=== PATIENT | female | born 1940 | race Caucasian/White ===

== ENCOUNTER 2022-02-21 08:16 | Emergency (ER) | payer MEDICARE, BC ==
[~2022-02-21] VITALS: Ht 167.6 cm; Wt 90.9 kg
[2022-02-21 08:24] VITALS: BP 129/65
[2022-02-21 09:08] LABS: CLARITY,URINE CLOUDY (Clear); COLOR,URINE STRAW (Yellow); GLUCOSE, URINE NEGATIVE (Neg); KETONES,URINE NEGATIVE (Neg); LEUKOCYTE ESTERASE ,URINE TRACE (Neg); NITRITES, URINE NEGATIVE (Neg); OCCULT BLOOD,URINE NEGATIVE (Neg); PROTEIN,URINE NEGATIVE (Neg); UROBILINOGEN,URINE 0.2 E.U/dL (0.2-1.0)
[2022-02-21 09:19] LABS: BASOPHILS # (AUTO) 0.1 X10'3 (0-0.2); BASOPHILS % (AUTO) 0.4 % (0-1); EOSINOPHILS # (AUTO) 0.3 X10'3 (0-0.9); EOSINOPHILS % (AUTO) 2.4 % (0-6); HEMATOCRIT 41.8 % (35.0-45.0); HEMOGLOBIN 13.8 g/dl (12.0-16.0); LYMPHOCYTES # (AUTO) 2.3 X10'3 (1.1-4.8); LYMPHOCYTES % (AUTO) 17.4 % (21-51); MEAN CORPUSCULAR HEMOGLOBIN 30.5 PG (27.0-31.0); MEAN CORPUSCULAR HGB CONC 33.1 g/dL (33.0-36.5); MEAN CORPUSCULAR VOLUME 92.3 FL (78-98); MEAN PLATELET VOLUME 8.5 FL (7.4-10.4); MONOCYTES % (AUTO) 7.4 % (2-12); NEUTROPHILS # (AUTO) 9.7 X10'3 (1.8-7.7); NEUTROPHILS % (AUTO) 72.4 % (42-75); PLATELET COUNT 182 X10'3 (140-440); RED BLOOD COUNT 4.53 X10'6 (4.20-5.60); WHITE BLOOD COUNT 13.4 X10'3 (4.5-11.0)
[2022-02-21 09:34] LABS: ALANINE AMINOTRANSFERASE 33 U/L (12-78); ALBUMIN 3.8 G/DL (3.4-5.0); ALBUMIN/GLOBULIN RATIO 0.9 (1.1-1.5); ALKALINE PHOSPHATASE 162 IU/L (46-116); ASPARTATE AMINO TRANSFERASE 30 U/L (10-37); BILIRUBIN,TOTAL 0.4 MG/DL (0.1-1.0); BLOOD UREA NITROGEN 28 MG/DL (7-18); BUN/CREATININE RATIO 21.1 (6.6-38.0); CALCIUM 10.6 MG/DL (8.5-10.1); CREATININE 1.33 MG/DL (0.40-0.90); GLUCOSE 221 MG/DL (70-104); TOTAL CARBON DIOXIDE 24.4 MMOL/L (24-32); TOTAL PROTEIN 8.1 G/DL (6.4-8.2); eGFR 38 ML/MIN
[2022-02-21 09:38] LABS: UA COLLECTION TYPE CLN CATCH MIDSTREAM
[2022-02-21 09:39] LABS: SQUAMOUS EPITHELIAL CELL,UR MODERATE /LPF (FEW)
[2022-02-21 09:41] LABS: BACTERIA,URINE 1+ /HPF (Neg); RBC,URINE 0-2 /HPF (0-2); WBC,URINE 0-4 /HPF (0-4)
[2022-02-21 09:47] LABS: ANION GAP 10 (8-16); CHLORIDE 100 MMOL/L (99-107); POTASSIUM 3.8 MMOL/L (3.5-5.1); SODIUM 134 MMOL/L (135-145)
[2022-02-21] MEDS ORDERED: normal saline 1000ML IV soln IVB ONE (09:55)
[2022-02-21] MEDS ORDERED: metroNIDAZOLE 500mg tablet PO ONE (11:40)
[2022-02-21] MEDS ORDERED: CEFD300C3 PO (11:40)
[2022-02-21] MEDS ORDERED: METR-159 PO (11:40)
== END 2022-02-21 12:06 | disposition home or self-care (01) ==
LOC: ER 08:16
DX: K57.92 Diverticulitis of intestine, part unspecified, without perforation or abscess without bleeding (principal); I10 Essential (primary) hypertension; E03.9 Hypothyroidism, unspecified; Z88.1 Allergy status to other antibiotic agents; Z90.49 Acquired absence of other specified parts of digestive tract; Z98.890 Other specified postprocedural states; R41.0 Disorientation, unspecified
CPT/HCPCS: 36415; 70450; 74176; 80053; 81001; 84145; 85025; 87088; 99284; J7030

== ENCOUNTER 2022-06-23 07:44 | Inpatient (IN) | payer MEDICARE, BC ==
[~2022-06-23] VITALS: Ht 165.1 cm; Wt 93.2 kg
[2022-06-23] MEDS ORDERED: CefTRIAXone 2gm/D5W 50ml BAG 50 ML IV ONE (08:25)
[2022-06-23] MEDS ORDERED: normal saline 1000ML IV soln IV ONE (08:25)
[2022-06-23 08:48] LABS: BASOPHILS # (AUTO) 0.1 X10'3 (0-0.2); BASOPHILS % (AUTO) 0.4 % (0-1); EOSINOPHILS # (AUTO) 0.2 X10'3 (0-0.9); EOSINOPHILS % (AUTO) 1.8 % (0-6); HEMATOCRIT 35.2 % (35.0-45.0); HEMOGLOBIN 11.6 g/dl (12.0-16.0); LYMPHOCYTES # (AUTO) 2.1 X10'3 (1.1-4.8); LYMPHOCYTES % (AUTO) 15.2 % (21-51); MEAN CORPUSCULAR HEMOGLOBIN 30.2 PG (27.0-31.0); MEAN CORPUSCULAR HGB CONC 32.9 g/dL (33.0-36.5); MEAN CORPUSCULAR VOLUME 91.7 FL (78-98); MONOCYTES % (AUTO) 7.4 % (2-12); NEUTROPHILS # (AUTO) 10.3 X10'3 (1.8-7.7); NEUTROPHILS % (AUTO) 75.2 % (42-75); PLATELET COUNT 220 X10'3 (140-440); RED BLOOD COUNT 3.83 X10'6 (4.20-5.60); RED CELL DISTRIBUTION WIDTH 14.5 % (11.5-14.5); WHITE BLOOD COUNT 13.7 X10'3 (4.5-11.0)
[2022-06-23 09:02] LABS: ALANINE AMINOTRANSFERASE 29 U/L (12-78); ALBUMIN 2.9 G/DL (3.4-5.0); ALBUMIN/GLOBULIN RATIO 0.9 (1.1-1.5); ALKALINE PHOSPHATASE 129 IU/L (46-116); ANION GAP 9 (8-16); ASPARTATE AMINO TRANSFERASE 26 U/L (10-37); BILIRUBIN,TOTAL 0.3 MG/DL (0.1-1.0); BLOOD UREA NITROGEN 52 MG/DL (7-18); BUN/CREATININE RATIO 40.9 (10.0-20.0); CHLORIDE 110 MMOL/L (99-107); CREATININE 1.27 MG/DL (0.40-0.90); GLUCOSE 224 MG/DL (70-104); POTASSIUM 4.1 MMOL/L (3.5-5.1); SODIUM 142 MMOL/L (135-145); TOTAL CARBON DIOXIDE 22.9 MMOL/L (24-32); TOTAL PROTEIN 6.2 G/DL (6.4-8.2); eGFR 40 ML/MIN
[2022-06-23] MEDS ORDERED: pantoprazole 40mg IV 80 MG in normal saline 100ml IV soln 100 ML IV ONE (09:45)
[2022-06-23] MEDS ORDERED: HYDROcodone/acetaminophen 10/325mg tab PO PRN (11:30)
[2022-06-23] MEDS ORDERED: potassium Cl 40MEQ/1/2NS 520ml 520 ML IV PRN (11:30)
[2022-06-23] MEDS ORDERED: HYDROcodone/acetaminophen 5mg/325mg tablet PO PRN (11:30)
[2022-06-23] MEDS ORDERED: magnesium 4gm in 100ml NS 100 ML IV PRN (11:30)
[2022-06-23] MEDS ORDERED: acetaminophen 325mg tablet PO PRN (11:30)
[2022-06-23] MEDS ORDERED: magnesium hydroxide 30ml (MOM) UD suspension PO PRN (11:30)
[2022-06-23] MEDS ORDERED: potassium Cl 20 mEq SR tablet PO PRN ×2 (11:30)
[2022-06-23] MEDS ORDERED: mag hydrox/Alum hydrox/simeth 30ml oral suspension PO PRN (11:30)
[2022-06-23 13:24] LABS: CLARITY,URINE CLOUDY (Clear); COLOR,URINE YELLOW (Yellow); GLUCOSE, URINE NEGATIVE (Neg); KETONES,URINE NEGATIVE (Neg); LEUKOCYTE ESTERASE ,URINE LARGE (Neg); NITRITES, URINE POSITIVE (Neg); OCCULT BLOOD,URINE TRACE-INTACT (Neg); PH,URINE 5.5 (4.8-8.0); PROTEIN,URINE NEGATIVE (Neg); UROBILINOGEN,URINE 0.2 E.U/dL (0.2-1.0)
[2022-06-23 13:27] LABS: UA COLLECTION TYPE FOLEY CATH
[2022-06-23 13:29] LABS: WBC,URINE TNTC /HPF (0-4)
[2022-06-23 13:34] LABS: BACTERIA,URINE 4+ /HPF (Neg); MUCUS STRANDS NONE SEEN /LPF (Neg); RBC,URINE 0-2 /HPF (0-2); SQUAMOUS EPITHELIAL CELL,UR FEW /LPF (FEW)
[2022-06-23] MEDS: pantoprazole 40MG/NS 100ML BAG 100 ML IV SCH ×3 (13:35→22:20)
[2022-06-23] MEDS: ondansetron/PF 4mg/2ml inj IV PRN (13:39)
[2022-06-23 13:55] LABS: HEMATOCRIT 32.7 % (35.0-45.0); HEMOGLOBIN 10.7 g/dl (12.0-16.0); MEAN CORPUSCULAR HEMOGLOBIN 29.9 PG (27.0-31.0); MEAN CORPUSCULAR HGB CONC 32.6 g/dL (33.0-36.5); MEAN CORPUSCULAR VOLUME 91.6 FL (78-98); MEAN PLATELET VOLUME 8.1 FL (7.4-10.4); PLATELET COUNT 190 X10'3 (140-440); RED BLOOD COUNT 3.57 X10'6 (4.20-5.60); RED CELL DISTRIBUTION WIDTH 14.7 % (11.5-14.5); WHITE BLOOD COUNT 12.6 X10'3 (4.5-11.0)
[2022-06-23 14:05] VITALS: BP 125/80
[2022-06-23] MEDS ORDERED: fentaNYL/PF 50MCG/1 ML 2ML syringe ONE (14:15)
[2022-06-23] MEDS ORDERED: MIDAZolam 1 MG/ML 5ML VIAL ONE (14:16)
[2022-06-23] MEDS ORDERED: LIDOcaine Viscous 15ml cup ONE (14:16)
--- NOTE | 2022-06-23 14:20 | NUR ---
Pt taken to GI lab
[2022-06-23] MEDS ORDERED: pantoprazole 40MG/NS 100ML BAG 100 ML IV SCH (16:00)
[2022-06-23 16:10] VITALS: BP 94/59
[2022-06-23 16:20] VITALS: BP 99/58
[2022-06-23 16:30] VITALS: BP 100/57
[2022-06-23 16:40] VITALS: BP 109/66
--- NOTE | 2022-06-23 17:24 | NUR ---
Pt back from GI lab.
[2022-06-23 17:26] LABS: HEMATOCRIT 29.8 % (35.0-45.0); HEMOGLOBIN 9.7 g/dl (12.0-16.0); MEAN CORPUSCULAR HEMOGLOBIN 30.2 PG (27.0-31.0); MEAN CORPUSCULAR HGB CONC 32.5 g/dL (33.0-36.5); MEAN CORPUSCULAR VOLUME 92.8 FL (78-98); PLATELET COUNT 185 X10'3 (140-440); RED BLOOD COUNT 3.21 X10'6 (4.20-5.60); RED CELL DISTRIBUTION WIDTH 14.8 % (11.5-14.5); WHITE BLOOD COUNT 13.3 X10'3 (4.5-11.0)
[2022-06-23] MEDS ORDERED: CHLO25TA10 PO (18:21)
[2022-06-23] MEDS ORDERED: ALLO100T PO (18:21)
[2022-06-23] MEDS ORDERED: VALS80TA32 PO (18:21)
[2022-06-23] MEDS ORDERED: [UNRECOGNIZED DRUG - OTHER] PO (18:21)
[2022-06-23] MEDS ORDERED: LEVO50TA8 PO (18:21)
[2022-06-23] MEDS ORDERED: CHOL50004 PO (18:21)
[2022-06-23] MEDS ORDERED: DIFL5DRO6 EACHEYE (18:21)
[2022-06-23] MEDS ORDERED: AMLO5TAB16 PO (18:21)
[2022-06-23] MEDS ORDERED: ADAL40PE5 SQ (18:23)
[2022-06-23] MEDS: K and/or MAG REPLACEMENT MC SCH (20:00)
[2022-06-23] MEDS: docusate sod 100mg capsule PO SCH (20:00)
--- NOTE | 2022-06-23 20:53 | NUR ---
PT PUT ON HOSPITAL BED.
--- NOTE | 2022-06-23 22:02 | NUR ---
PATIENTS CONTACT IS DAUGHTER MARU CLAUDIA PH#
[2022-06-23 22:05] LABS: HEMATOCRIT 28.8 % (35.0-45.0); HEMOGLOBIN 9.4 g/dl (12.0-16.0); MEAN CORPUSCULAR HEMOGLOBIN 30.2 PG (27.0-31.0); MEAN CORPUSCULAR HGB CONC 32.6 g/dL (33.0-36.5); MEAN CORPUSCULAR VOLUME 92.7 FL (78-98); MEAN PLATELET VOLUME 8.1 FL (7.4-10.4); PLATELET COUNT 191 X10'3 (140-440); RED BLOOD COUNT 3.11 X10'6 (4.20-5.60); RED CELL DISTRIBUTION WIDTH 14.7 % (11.5-14.5); WHITE BLOOD COUNT 14.2 X10'3 (4.5-11.0)
--- NOTE | 2022-06-23 22:34 | NUR ---
PATIENT HAD MEDIUM BM OF OBSERVABLE BLACK TARRY LIQUID
[2022-06-24 00:37] LABS: HEMATOCRIT 27.3 % (35.0-45.0); MEAN CORPUSCULAR HEMOGLOBIN 30.3 PG (27.0-31.0); MEAN CORPUSCULAR VOLUME 91.9 FL (78-98); PLATELET COUNT 180 X10'3 (140-440); RED BLOOD COUNT 2.97 X10'6 (4.20-5.60); RED CELL DISTRIBUTION WIDTH 14.7 % (11.5-14.5); WHITE BLOOD COUNT 15.7 X10'3 (4.5-11.0)
[2022-06-24] MEDS: pantoprazole 40MG/NS 100ML BAG 100 ML IV SCH ×5 (02:26→21:23)
[2022-06-24 03:17] LABS: ALANINE AMINOTRANSFERASE 17 U/L (12-78); ALBUMIN 2.8 G/DL (3.4-5.0); ALBUMIN/GLOBULIN RATIO 0.9 (1.1-1.5); ALKALINE PHOSPHATASE 74 IU/L (46-116); ANION GAP 10 (8-16); ASPARTATE AMINO TRANSFERASE 17 U/L (10-37); BILIRUBIN,TOTAL 0.3 MG/DL (0.1-1.0); BLOOD UREA NITROGEN 71 MG/DL (7-18); BUN/CREATININE RATIO 67.6 (10.0-20.0); CALCIUM 8.7 MG/DL (8.5-10.1); CHLORIDE 114 MMOL/L (99-107); CREATININE 1.05 MG/DL (0.40-0.90); GLUCOSE 173 MG/DL (70-104); MAGNESIUM 1.9 MG/DL (1.5-2.4); SODIUM 144 MMOL/L (135-145); TOTAL CARBON DIOXIDE 20.4 MMOL/L (24-32); TOTAL PROTEIN 5.8 G/DL (6.4-8.2); eGFR 50 ML/MIN
--- NOTE | 2022-06-24 05:48 | NUR ---
PT HAD LARGE BM THAT WAS OBSERVABLE BLACK & TARRY LIQUID.
[2022-06-24] MEDS: DIFLUPREDNATE EACHEYE SCH (08:00)
[2022-06-24] MEDS ORDERED: beta-carotene(A) w/C & E + minerals tab PO SCH (08:00)
[2022-06-24] MEDS: CefTRIAXone/D5W-Rocephin 1gm 50 ML IV SCH (08:32)
[2022-06-24 08:37] LABS: HEMATOCRIT 26.1 % (35.0-45.0); HEMOGLOBIN 8.8 g/dl (12.0-16.0); MEAN CORPUSCULAR HGB CONC 33.8 g/dL (33.0-36.5); MEAN CORPUSCULAR VOLUME 91.8 FL (78-98); MEAN PLATELET VOLUME 8.2 FL (7.4-10.4); PLATELET COUNT 182 X10'3 (140-440); RED BLOOD COUNT 2.84 X10'6 (4.20-5.60); RED CELL DISTRIBUTION WIDTH 14.8 % (11.5-14.5); WHITE BLOOD COUNT 13.9 X10'3 (4.5-11.0)
[2022-06-24] MEDS: docusate sod 100mg capsule PO SCH ×2 (09:09→20:23)
[2022-06-24] MEDS: levoTHYROXINE 25mcg tablet PO SCH (09:11)
[2022-06-24] MEDS: allopurinol 100mg tablet PO SCH (09:11)
[2022-06-24] MEDS: cholecalciferol (vitamin D3) 1,000 unit (25mcg) tablet PO SCH (09:11)
[2022-06-24] MEDS: K and/or MAG REPLACEMENT MC SCH ×2 (09:13→20:00)
--- NOTE | 2022-06-24 09:16 | NUR ---
RN LEFT FOR PT DAUGHTER MARU FOR UPDATE AND TO CALL BACK.
--- NOTE | 2022-06-24 12:40 | NUR ---
CALLED TO GIVE REPORT BUT RECEIVING DEPT IS NOT READY FOR PT
[2022-06-24 13:02] LABS: HEMATOCRIT 26.9 % (35.0-45.0); MEAN CORPUSCULAR HEMOGLOBIN 30.5 PG (27.0-31.0); MEAN CORPUSCULAR HGB CONC 33.3 g/dL (33.0-36.5); MEAN CORPUSCULAR VOLUME 91.5 FL (78-98); PLATELET COUNT 185 X10'3 (140-440); RED BLOOD COUNT 2.94 X10'6 (4.20-5.60); RED CELL DISTRIBUTION WIDTH 14.7 % (11.5-14.5); WHITE BLOOD COUNT 14.3 X10'3 (4.5-11.0)
[2022-06-24 14:00] VITALS: BP 146/67
--- NOTE | 2022-06-24 15:59 | NUR ---
PAGED DR SINGLETON RE: PAGER ID: [phone] MESSAGE: DEBRA TAYLOR. CAN I GET ORDER FOR NYSTATIN FOR PANNUS, AND I NEED AN ORDER FOR GARCIA CATH THAT WAS PLACED IN ER. THANKS CHILO [id number]
--- NOTE | 2022-06-24 16:26 | NUR ---
PAGED DR SINGLETON RE: PAGER ID: [phone] MESSAGE: DEBRA TAYLOR. CAN I GET TRAMADOL FOR PAIN? CHILO [id number] SURG
[2022-06-24] MEDS ORDERED: traMADol 50MG tablet PO PRN (16:30)
[2022-06-24 17:01] LABS: HEMATOCRIT 26.1 % (35.0-45.0); HEMOGLOBIN 8.7 g/dl (12.0-16.0); MEAN CORPUSCULAR HEMOGLOBIN 30.5 PG (27.0-31.0); MEAN CORPUSCULAR HGB CONC 33.2 g/dL (33.0-36.5); PLATELET COUNT 184 X10'3 (140-440); RED BLOOD COUNT 2.84 X10'6 (4.20-5.60); RED CELL DISTRIBUTION WIDTH 14.6 % (11.5-14.5); WHITE BLOOD COUNT 13.8 X10'3 (4.5-11.0)
[2022-06-24 18:00] VITALS: BP 155/68
--- NOTE | 2022-06-24 18:49 | NUR ---
Problems reprioritized. Patient report given, questions answered & plan of care reviewed with CARLO BERUMEN.
[2022-06-24] MEDS: nystatin 15 GM powder TP SCH (20:23)
[2022-06-24 20:42] LABS: HEMATOCRIT 24.1 % (35.0-45.0); MEAN CORPUSCULAR HEMOGLOBIN 30.6 PG (27.0-31.0); MEAN CORPUSCULAR HGB CONC 33.3 g/dL (33.0-36.5); MEAN CORPUSCULAR VOLUME 91.8 FL (78-98); MEAN PLATELET VOLUME 8.1 FL (7.4-10.4); PLATELET COUNT 166 X10'3 (140-440); RED BLOOD COUNT 2.63 X10'6 (4.20-5.60); RED CELL DISTRIBUTION WIDTH 14.5 % (11.5-14.5); WHITE BLOOD COUNT 12.8 X10'3 (4.5-11.0)
[2022-06-24 22:00] VITALS: BP 118/58
[2022-06-24] MEDS: ondansetron/PF 4mg/2ml inj IV PRN (22:51)
--- NOTE | 2022-06-25 | NUR ---
Pt. is awake alert oriented able to discuss events leading to hospital admission. pt. state was taking NSAISDs at home and developed dark red stools. Pt. has a new peripheral IV in right arm with Protonix gtt infusing at 8 mg.hr. Santiago with mod amt yellow clear urine. pt. is able to assist to turn in bed. 2100 had large brownish BM old stool. Pt. had EGD yesterday. Plan: continue to monitor stool color; monitor H/H.
[2022-06-25] MEDS: pantoprazole 40MG/NS 100ML BAG 100 ML IV SCH ×5 (01:00→23:12)
[2022-06-25 04:27] LABS: BASOPHILS # (AUTO) 0.1 X10'3 (0-0.2); BASOPHILS % (AUTO) 0.6 % (0-1); EOSINOPHILS # (AUTO) 0.5 X10'3 (0-0.9); EOSINOPHILS % (AUTO) 3.6 % (0-6); HEMATOCRIT 23.9 % (35.0-45.0); LYMPHOCYTES % (AUTO) 23.7 % (21-51); MEAN CORPUSCULAR HEMOGLOBIN 30.4 PG (27.0-31.0); MEAN CORPUSCULAR HGB CONC 33.5 g/dL (33.0-36.5); MEAN CORPUSCULAR VOLUME 90.9 FL (78-98); MEAN PLATELET VOLUME 7.9 FL (7.4-10.4); MONOCYTES % (AUTO) 7.8 % (2-12); NEUTROPHILS # (AUTO) 8.1 X10'3 (1.8-7.7); NEUTROPHILS % (AUTO) 64.3 % (42-75); PLATELET COUNT 158 X10'3 (140-440); RED BLOOD COUNT 2.63 X10'6 (4.20-5.60); RED CELL DISTRIBUTION WIDTH 14.6 % (11.5-14.5); WHITE BLOOD COUNT 12.6 X10'3 (4.5-11.0)
[2022-06-25 04:47] LABS: ALANINE AMINOTRANSFERASE 14 U/L (12-78); ALBUMIN 2.8 G/DL (3.4-5.0); ALBUMIN/GLOBULIN RATIO 0.9 (1.1-1.5); ALKALINE PHOSPHATASE 64 IU/L (46-116); ANION GAP 7 (8-16); ASPARTATE AMINO TRANSFERASE 13 U/L (10-37); BILIRUBIN,TOTAL 0.3 MG/DL (0.1-1.0); BLOOD UREA NITROGEN 51 MG/DL (7-18); BUN/CREATININE RATIO 46.8 (10.0-20.0); CALCIUM 9.2 MG/DL (8.5-10.1); CHLORIDE 111 MMOL/L (99-107); CREATININE 1.09 MG/DL (0.40-0.90); GLUCOSE 137 MG/DL (70-104); MAGNESIUM 1.9 MG/DL (1.5-2.4); POTASSIUM 3.8 MMOL/L (3.5-5.1); SODIUM 142 MMOL/L (135-145); TOTAL CARBON DIOXIDE 23.9 MMOL/L (24-32); TOTAL PROTEIN 5.8 G/DL (6.4-8.2); eGFR 48 ML/MIN
[2022-06-25 06:00] VITALS: BP 128/70
--- NOTE | 2022-06-25 06:20 | NUR ---
Patient in room [facility]. I have received report from JAMAICA Velasquez and had the opportunity to ask questions and assume patient care.
[2022-06-25] MEDS ORDERED: amLODIPine 5mg tablet PO SCH (08:00)
[2022-06-25] MEDS: docusate sod 100mg capsule PO SCH (09:17)
[2022-06-25] MEDS: K and/or MAG REPLACEMENT MC SCH ×2 (09:17→20:00)
[2022-06-25] MEDS: DIFLUPREDNATE EACHEYE SCH (09:56)
[2022-06-25] MEDS: CefTRIAXone/D5W-Rocephin 1gm 50 ML IV SCH (09:56)
[2022-06-25] MEDS: allopurinol 100mg tablet PO SCH (09:57)
[2022-06-25] MEDS: levoTHYROXINE 25mcg tablet PO SCH (09:58)
[2022-06-25] MEDS: cholecalciferol (vitamin D3) 1,000 unit (25mcg) tablet PO SCH (09:58)
[2022-06-25 10:00] VITALS: BP 130/51
[2022-06-25] MEDS: nystatin 15 GM powder TP SCH ×2 (10:02→20:09)
[2022-06-25] MEDS: normal saline 1000ml 1,000 ML IV SCH (10:24)
[2022-06-25 18:00] VITALS: BP 133/52
[2022-06-25 22:00] VITALS: BP 127/43
[2022-06-26] MEDS: pantoprazole 40MG/NS 100ML BAG 100 ML IV SCH ×5 (01:00→21:12)
[2022-06-26] MEDS: normal saline 1000ml 1,000 ML IV SCH ×2 (02:04→04:45)
[2022-06-26 04:48] LABS: BASOPHILS # (AUTO) 0.1 X10'3 (0-0.2); BASOPHILS % (AUTO) 0.5 % (0-1); EOSINOPHILS # (AUTO) 0.4 X10'3 (0-0.9); EOSINOPHILS % (AUTO) 4.8 % (0-6); HEMATOCRIT 23.7 % (35.0-45.0); LYMPHOCYTES # (AUTO) 2.2 X10'3 (1.1-4.8); LYMPHOCYTES % (AUTO) 23.7 % (21-51); MEAN CORPUSCULAR HEMOGLOBIN 30.9 PG (27.0-31.0); MEAN CORPUSCULAR HGB CONC 33.6 g/dL (33.0-36.5); MEAN CORPUSCULAR VOLUME 91.8 FL (78-98); MEAN PLATELET VOLUME 8.1 FL (7.4-10.4); MONOCYTES # (AUTO) 0.8 X10'3 (0-0.9); MONOCYTES % (AUTO) 8.6 % (2-12); NEUTROPHILS # (AUTO) 5.7 X10'3 (1.8-7.7); NEUTROPHILS % (AUTO) 62.4 % (42-75); PLATELET COUNT 153 X10'3 (140-440); RED BLOOD COUNT 2.58 X10'6 (4.20-5.60); RED CELL DISTRIBUTION WIDTH 14.8 % (11.5-14.5); WHITE BLOOD COUNT 9.1 X10'3 (4.5-11.0)
[2022-06-26 05:09] LABS: ALANINE AMINOTRANSFERASE 14 U/L (12-78); ALBUMIN 2.8 G/DL (3.4-5.0); ALBUMIN/GLOBULIN RATIO 0.9 (1.1-1.5); ALKALINE PHOSPHATASE 93 IU/L (46-116); ANION GAP 7 (8-16); ASPARTATE AMINO TRANSFERASE 16 U/L (10-37); BILIRUBIN,TOTAL 0.2 MG/DL (0.1-1.0); BLOOD UREA NITROGEN 32 MG/DL (7-18); BUN/CREATININE RATIO 30.5 (10.0-20.0); CALCIUM 8.9 MG/DL (8.5-10.1); CHLORIDE 109 MMOL/L (99-107); CREATININE 1.05 MG/DL (0.40-0.90); GLUCOSE 160 MG/DL (70-104); MAGNESIUM 1.8 MG/DL (1.5-2.4); POTASSIUM 3.8 MMOL/L (3.5-5.1); SODIUM 141 MMOL/L (135-145); TOTAL CARBON DIOXIDE 25.3 MMOL/L (24-32); TOTAL PROTEIN 5.8 G/DL (6.4-8.2); eGFR 50 ML/MIN
[2022-06-26 06:00] VITALS: BP 140/47
--- NOTE | 2022-06-26 06:50 | NUR ---
Problems reprioritized. Patient report given, questions answered & plan of care reviewed with JAMAICA Hays.
[2022-06-26] MEDS: K and/or MAG REPLACEMENT MC SCH ×2 (08:00→20:00)
[2022-06-26] MEDS: CefTRIAXone/D5W-Rocephin 1gm 50 ML IV SCH (09:00)
[2022-06-26] MEDS: DIFLUPREDNATE EACHEYE SCH (09:03)
[2022-06-26] MEDS: nystatin 15 GM powder TP SCH ×2 (09:03→21:12)
[2022-06-26] MEDS: cholecalciferol (vitamin D3) 1,000 unit (25mcg) tablet PO SCH (09:04)
[2022-06-26] MEDS: levoTHYROXINE 25mcg tablet PO SCH (09:05)
[2022-06-26] MEDS: allopurinol 100mg tablet PO SCH (09:05)
[2022-06-26 11:00] VITALS: BP 121/40
[2022-06-26 18:00] VITALS: BP 136/50
--- NOTE | 2022-06-26 18:20 | NUR ---
Patient in room [facility]. I have received report from Kristyn BERUMEN and had the opportunity to ask questions and assume patient care.
[2022-06-26] MEDS: acetaminophen 325mg tablet PO PRN (19:04)
[2022-06-26 23:00] VITALS: BP 129/41
[2022-06-27] VITALS (7 sets, daily range): BP systolic 139–155; BP diastolic 44–52
[2022-06-27] MEDS: acetaminophen 325mg tablet PO PRN (01:13)
[2022-06-27] MEDS: pantoprazole 40MG/NS 100ML BAG 100 ML IV SCH ×3 (02:15→11:08)
--- NOTE | 2022-06-27 06:25 | NUR ---
Problems reprioritized. Patient report given, questions answered & plan of care reviewed with Kristyn Pyle RN.
[2022-06-27] MEDS: normal saline 1000ml 1,000 ML IV SCH (06:40)
[2022-06-27 06:49] LABS: BASOPHILS % (AUTO) 0.5 % (0-1); EOSINOPHILS # (AUTO) 0.4 X10'3 (0-0.9); EOSINOPHILS % (AUTO) 4.8 % (0-6); HEMOGLOBIN 7.8 g/dl (12.0-16.0); LYMPHOCYTES # (AUTO) 2.4 X10'3 (1.1-4.8); LYMPHOCYTES % (AUTO) 28.9 % (21-51); MEAN CORPUSCULAR HEMOGLOBIN 30.9 PG (27.0-31.0); MEAN CORPUSCULAR HGB CONC 33.7 g/dL (33.0-36.5); MEAN CORPUSCULAR VOLUME 91.7 FL (78-98); MEAN PLATELET VOLUME 8.1 FL (7.4-10.4); MONOCYTES # (AUTO) 0.7 X10'3 (0-0.9); MONOCYTES % (AUTO) 8.8 % (2-12); NEUTROPHILS # (AUTO) 4.6 X10'3 (1.8-7.7); PLATELET COUNT 144 X10'3 (140-440); RED BLOOD COUNT 2.51 X10'6 (4.20-5.60); RED CELL DISTRIBUTION WIDTH 14.6 % (11.5-14.5); WHITE BLOOD COUNT 8.1 X10'3 (4.5-11.0)
[2022-06-27 07:17] LABS: ANION GAP 7 (8-16); BILIRUBIN,TOTAL 0.2 MG/DL (0.1-1.0); BLOOD UREA NITROGEN 22 MG/DL (7-18); BUN/CREATININE RATIO 19.5 (10.0-20.0); CALCIUM 8.8 MG/DL (8.5-10.1); CHLORIDE 109 MMOL/L (99-107); CREATININE 1.13 MG/DL (0.40-0.90); GLUCOSE 143 MG/DL (70-104); MAGNESIUM 1.7 MG/DL (1.5-2.4); POTASSIUM 3.7 MMOL/L (3.5-5.1); SODIUM 141 MMOL/L (135-145); TOTAL CARBON DIOXIDE 25.3 MMOL/L (24-32); eGFR 46 ML/MIN
[2022-06-27 07:18] LABS: ALANINE AMINOTRANSFERASE 23 U/L (12-78); ALBUMIN 2.6 G/DL (3.4-5.0); ALBUMIN/GLOBULIN RATIO 0.9 (1.1-1.5); ALKALINE PHOSPHATASE 84 IU/L (46-116); ASPARTATE AMINO TRANSFERASE 25 U/L (10-37); TOTAL PROTEIN 5.6 G/DL (6.4-8.2)
[2022-06-27] MEDS: K and/or MAG REPLACEMENT MC SCH (08:00)
[2022-06-27] MEDS: CefTRIAXone/D5W-Rocephin 1gm 50 ML IV SCH (08:54)
[2022-06-27] MEDS: DIFLUPREDNATE EACHEYE SCH (08:55)
[2022-06-27] MEDS: cholecalciferol (vitamin D3) 1,000 unit (25mcg) tablet PO SCH (08:55)
[2022-06-27] MEDS: levoTHYROXINE 25mcg tablet PO SCH (08:56)
[2022-06-27] MEDS: nystatin 15 GM powder TP SCH (08:56)
[2022-06-27] MEDS: allopurinol 100mg tablet PO SCH (08:56)
--- NOTE | 2022-06-27 09:21 | NUR ---
Called blood bank, w/w Rebecca to verify orders for 1UPRBC placed and pending thaw. Addendum: 06/27/22 at 0927 by Kristyn Pyle RN Rebecca called back and stated we need a new type & screen- previous draw at [facility] this AM. RN placed order and will continue to monitor. Also gave 240ml prune juice. Pt endorses 2 BMs per week and last BM 06/23. Addendum: 06/27/22 at 1005 by Kristyn Pyle RN 2 days pt has refused repositioning. Education provided to pt and daughter Lyric at bedside
[2022-06-27] MEDS ORDERED: PANT40TA54 PO (11:41)
--- NOTE | 2022-06-27 14:13 | NUR ---
PRESSURE ULCER EDUCATION: DEFINITION: A pressure ulcer is an area of skin that breaks down when you stay in one position too long. The constant pressure against the skin reduces the blood flow to that area and the affected tissue dies. CAUSES: "Being bedridden or in a wheelchair "Fragile skin "Having a chronic condition, such as diabetes or vascular disease "Inability to move certain parts of your body without assistance "Older age "Incontinence of urine or stool SYMPTOMS: "A reddened area that DOES NOT turn white when pressed on - this can be the beginning of a pressure ulcer "A blister, deep sore or a crater - these can be advanced pressure ulcers FIRST AID: "Relieve the pressure on this area "Keep the area clean and dry "Call your primary doctor if you see any of the above symptoms "DO NOT massage the area "DO NOT use a donut shaped or ring shaped pillow- these actually interfere with the blood flow and cause complications PREVENTION: "Check for pressure ulcers everyday "Change position at least every two hours to relieve pressure "Use items that help relieve pressure- pillows, sheepskin, foam padding, and powders. "Keep skin clean and dry "Eat healthy well balanced meals "Exercise daily IF YOU SEE ANY OF THESE SYMPTOMS WHILE IN THE HOSPITAL - TELL YOUR NURSE IMMEDIATELY. IF YOU SEE ANY OF THESE SYMPTOMS WHILE AT HOME OR HAVE ANY QUESTIONS OR CONCERNS ABOUT PRESSURE ULCERS - CALL YOUR PRIMARY DOCTOR IMMEDIATELY. Addendum: 06/27/22 at 1413 by Sunitha Locke LVN Amended: Links added. Addendum: 06/27/22 at 1501 by Kristyn Pyle RN [facility] gave report to [facility], asnwered all questions satisfactorily,.
--- NOTE | 2022-06-27 16:09 | NUR ---
Pt endorsed having all belongings and all answered questions appropriately Addendum: 06/27/22 at 1704 by Kristyn Pyle RN Gave report to BV at [facility] Addendum: 06/27/22 at 1704 by Kristyn Pyle RN haylee ballard IV Addendum: 06/27/22 at 1843 by Kristyn Pyle RN Pt tolerated transfusion w/out issued
== END 2022-06-27 17:24 | disposition home health service (06) | DRG 377 ==
LOC: ER 07:44 → ED HOLD 11:40 → SUR 3N 06-24 13:40
PROVIDERS: ADMIT Family Medicine; ATTEND Family Medicine
PROC: 0W3P8ZZ Control Bleeding in Gastrointestinal Tract, Via Natural or Artificial Opening Endoscopic (ICD-10-PCS; principal; 2022-06-23)
DX: K26.4 Chronic or unspecified duodenal ulcer with hemorrhage (principal); N17.0 Acute kidney failure with tubular necrosis; N39.0 Urinary tract infection, site not specified; E03.9 Hypothyroidism, unspecified; I10 Essential (primary) hypertension; M10.9 Gout, unspecified; M06.9 Rheumatoid arthritis, unspecified; D64.9 Anemia, unspecified; E86.9 Volume depletion, unspecified; N28.9 Disorder of kidney and ureter, unspecified; D86.9 Sarcoidosis, unspecified; K44.9 Diaphragmatic hernia without obstruction or gangrene; K20.90 Esophagitis, unspecified without bleeding; B96.20 Unspecified Escherichia coli [E. coli] as the cause of diseases classified elsewhere; Z88.1 Allergy status to other antibiotic agents; Z88.8 Allergy status to other drugs, medicaments and biological substances; Z79.899 Other long term (current) drug therapy; Z79.620 Long term (current) use of immunosuppressive biologic; Z82.49 Family history of ischemic heart disease and other diseases of the circulatory system; Z83.3 Family history of diabetes mellitus; Z87.891 Personal history of nicotine dependence
CPT/HCPCS: 36415; 36430; 43255; 71045; 80053; 81001; 83735; 84145; 84484; 85025; 85027; 85610; 86885; 86900; 86901; 86920; 87077; 87081; 87088; 87186; 93005; 97110; 97161; 97530; 99152; 99285; A5200; A6213; A6250; A6402; C9113; G0378; J0696; J2250; J2405; J3010; J3490; J7030; J7040; P9016

== ENCOUNTER 2022-08-24 21:54 | Emergency (ER) | payer MEDICARE, BC ==
[~2022-08-24] VITALS: Ht 165.1 cm; Wt 92.3 kg
[~2022-08-24 21:54] MED LIST: ADAL40PE5 SQ; ALLO100T PO; AMLO5TAB16 PO; CHOL50004 PO; DIFL5DRO6 EACHEYE; LEVO50TA8 PO; PANT40TA54 PO; [UNRECOGNIZED DRUG - OTHER] PO
[2022-08-24] MEDS ORDERED: iohexol 300mg/ml 100ml inj. ONE (23:13)
[2022-08-24 23:17] LABS: BASOPHILS # (AUTO) 0.1 X10'3 (0-0.2); EOSINOPHILS # (AUTO) 0.4 X10'3 (0-0.9); EOSINOPHILS % (AUTO) 2.9 % (0-6); HEMATOCRIT 35.3 % (35.0-45.0); HEMOGLOBIN 11.6 g/dl (12.0-16.0); LYMPHOCYTES # (AUTO) 2.9 X10'3 (1.1-4.8); MEAN CORPUSCULAR HEMOGLOBIN 26.9 PG (27.0-31.0); MEAN CORPUSCULAR HGB CONC 32.9 g/dL (33.0-36.5); MEAN CORPUSCULAR VOLUME 81.8 FL (78-98); MEAN PLATELET VOLUME 7.7 FL (7.4-10.4); MONOCYTES # (AUTO) 1.4 X10'3 (0-0.9); MONOCYTES % (AUTO) 10.9 % (2-12); NEUTROPHILS # (AUTO) 8.3 X10'3 (1.8-7.7); NEUTROPHILS % (AUTO) 63.2 % (42-75); PLATELET COUNT 245 X10'3 (140-440); RED BLOOD COUNT 4.31 X10'6 (4.20-5.60); RED CELL DISTRIBUTION WIDTH 16.2 % (11.5-14.5); WHITE BLOOD COUNT 13.2 X10'3 (4.5-11.0)
[2022-08-24 23:30] LABS: ALANINE AMINOTRANSFERASE 42 U/L (12-78); ALBUMIN 3.4 G/DL (3.4-5.0); ALKALINE PHOSPHATASE 137 IU/L (46-116); ANION GAP 6 (8-16); ASPARTATE AMINO TRANSFERASE 44 U/L (10-37); BILIRUBIN,TOTAL 0.2 MG/DL (0.1-1.0); BLOOD UREA NITROGEN 34 MG/DL (7-18); BUN/CREATININE RATIO 25.8 (10.0-20.0); CALCIUM 9.4 MG/DL (8.5-10.1); CHLORIDE 103 MMOL/L (99-107); CREATININE 1.32 MG/DL (0.40-0.90); GLUCOSE 200 MG/DL (70-104); POTASSIUM 4.2 MMOL/L (3.5-5.1); SODIUM 136 MMOL/L (135-145); TOTAL PROTEIN 6.9 G/DL (6.4-8.2); eGFR 39 ML/MIN
[2022-08-24 23:31] LABS: HEMOGLOBIN A1C 7.6 % (4.5-6.2)
--- NOTE | 2022-08-24 23:37 | NUR ---
pt to ct
[2022-08-25] MEDS ORDERED: normal saline 1000ml 1,000 ML IV ONE (00:40)
[2022-08-25 00:50] LABS: CLARITY,URINE SLIGHTLY CLOUDY (Clear); COLOR,URINE YELLOW (Yellow); GLUCOSE, URINE NEGATIVE (Neg); KETONES,URINE NEGATIVE (Neg); LEUKOCYTE ESTERASE ,URINE SMALL (Neg); NITRITES, URINE NEGATIVE (Neg); OCCULT BLOOD,URINE NEGATIVE (Neg); PROTEIN,URINE NEGATIVE (Neg); UROBILINOGEN,URINE 0.2 E.U/dL (0.2-1.0)
[2022-08-25 00:55] LABS: UA COLLECTION TYPE STRAIGHT CATH
[2022-08-25 00:56] LABS: SQUAMOUS EPITHELIAL CELL,UR MANY /LPF (FEW); WBC CLUMPS,URINE MANY /HPF (NEGATIVE)
[2022-08-25 00:57] LABS: BACTERIA,URINE 2+ /HPF (Neg); WBC,URINE 30-50 /HPF (0-4)
[2022-08-25 00:58] LABS: RBC,URINE 0-2 /HPF (0-2); TRANSITIONAL EPI CELLS,URINE FEW /HPF
[2022-08-25 00:59] LABS: YEAST MODERATE /HPF (NEGATIVE)
[2022-08-25] MEDS ORDERED: CefTRIAXone 2gm/D5W 50ml BAG 50 ML IV ONE (01:10)
[2022-08-25] MEDS ORDERED: CEPH250T PO (01:10)
[2022-08-25 02:53] VITALS: BP 135/74
== END 2022-08-25 02:40 | disposition home or self-care (01) ==
LOC: ER 21:54
DX: K59.00 Constipation, unspecified (principal); I10 Essential (primary) hypertension; E03.9 Hypothyroidism, unspecified; Z88.1 Allergy status to other antibiotic agents; A79.89 Other specified rickettsioses
CPT/HCPCS: 36415; 74177; 80053; 81001; 83036; 85025; 87077; 87088; 87186; 96361; 96365; 99285; J0696; J7030; Q9967

== ENCOUNTER 2023-04-30 18:37 | Emergency (ER) | payer MEDICARE, BC ==
[~2023-04-30] VITALS: Ht 167.6 cm; Wt 87.3 kg
[2023-04-30 19:53] LABS: BASOPHILS # (AUTO) 0.1 X10'3 (0-0.2); BASOPHILS % (AUTO) 0.9 % (0-1); EOSINOPHILS # (AUTO) 0.4 X10'3 (0-0.9); EOSINOPHILS % (AUTO) 3.5 % (0-6); HEMATOCRIT 37.4 % (35.0-45.0); HEMOGLOBIN 12.5 g/dl (12.0-16.0); LYMPHOCYTES # (AUTO) 1.6 X10'3 (1.1-4.8); LYMPHOCYTES % (AUTO) 14.8 % (21-51); MEAN CORPUSCULAR HEMOGLOBIN 27.3 PG (27.0-31.0); MEAN CORPUSCULAR HGB CONC 33.5 g/dL (33.0-36.5); MEAN CORPUSCULAR VOLUME 81.5 FL (78-98); MEAN PLATELET VOLUME 7.9 FL (7.4-10.4); MONOCYTES # (AUTO) 1.2 X10'3 (0-0.9); MONOCYTES % (AUTO) 10.7 % (2-12); NEUTROPHILS # (AUTO) 7.6 X10'3 (1.8-7.7); NEUTROPHILS % (AUTO) 70.1 % (42-75); PLATELET COUNT 215 X10'3 (140-440); RED BLOOD COUNT 4.59 X10'6 (4.20-5.60); RED CELL DISTRIBUTION WIDTH 15.7 % (11.5-14.5); WHITE BLOOD COUNT 10.8 X10'3 (4.5-11.0)
[2023-04-30 20:12] LABS: ALBUMIN 3.5 G/DL (3.4-5.0); ANION GAP 12 (8-16); BLOOD UREA NITROGEN 24 MG/DL (7-18); BUN/CREATININE RATIO 20.7 (10.0-20.0); CALCIUM 9.5 MG/DL (8.5-10.1); CHLORIDE 100 MMOL/L (99-107); CREATININE 1.16 MG/DL (0.40-0.90); GLUCOSE 152 MG/DL (70-104); PRO BRAIN NATRIURETIC PEPTIDE 191 PG/ML (0-450); SODIUM 136 MMOL/L (135-145); TOTAL CARBON DIOXIDE 24.5 MMOL/L (24-32); eCRCL 34 ML/MIN; eGFR 45 ML/MIN
[2023-04-30] MEDS ORDERED: methylPREDNISolone sod succ 125mg/2ml vial IV ONE (22:00)
[2023-04-30] MEDS ORDERED: ipratropium/albuterol 3ml nebule NEB ONE (22:00)
[2023-04-30] MEDS ORDERED: CEPH250T PO (22:03)
[2023-04-30 22:11] VITALS: PULSE 81; RESP 16; O2SAT 98
[2023-04-30] MEDS ORDERED: dexamethasone 4mg tablet PO ONE (22:15)
[2023-04-30 22:18] VITALS: PULSE 86; RESP 16; O2SAT 97
[2023-04-30] MEDS ORDERED: dexamethasone sod phosphate 10mg/ml inj PO STA (22:30)
[2023-05-01 00:27] LABS: BILIRUBIN,URINE NEGATIVE (Neg); CLARITY,URINE TURBID (Clear); COLOR,URINE YELLOW (Yellow); GLUCOSE, URINE NEGATIVE (Neg); KETONES,URINE NEGATIVE (Neg); LEUKOCYTE ESTERASE ,URINE MODERATE (Neg); NITRITES, URINE POSITIVE (Neg); OCCULT BLOOD,URINE TRACE-INTACT (Neg); PH,URINE 5.5 (4.8-8.0); PROTEIN,URINE NEGATIVE (Neg); UROBILINOGEN,URINE 0.2 E.U/dL (0.2-1.0)
[2023-05-01 00:33] LABS: UA COLLECTION TYPE NON-SPECIFIED
[2023-05-01 00:35] LABS: SQUAMOUS EPITHELIAL CELL,UR MANY /LPF (FEW); WBC,URINE TNTC /HPF (0-4)
[2023-05-01 00:36] LABS: BACTERIA,URINE 3+ /HPF (Neg); RBC,URINE 0-2 /HPF (0-2); YEAST FEW /HPF (NEGATIVE)
[2023-05-01 00:37] LABS: WBC CLUMPS,URINE MODERATE /HPF (NEGATIVE)
[2023-05-01] MEDS ORDERED: BENZ-38 PO (00:55)
[2023-05-01] MEDS ORDERED: CefTRIAXone 1000mg IM Kit (w/lidocaine diluent) IM ONE (00:55)
[2023-05-01 01:10] VITALS: BP 139/79; PULSE 72; RESP 18; TEMP 98.6; O2SAT 96
== END 2023-05-01 01:36 | disposition home or self-care (01) ==
LOC: ER 18:38
DX: N39.0 Urinary tract infection, site not specified (principal); R05.9 Cough, unspecified; I10 Essential (primary) hypertension; E03.9 Hypothyroidism, unspecified; Z79.899 Other long term (current) drug therapy
CPT/HCPCS: 36415; 71045; 80048; 81001; 83880; 84484; 85025; 87502; 87503; 87634; 93005; 94640; 96372; 99285; J0696; J1100; 94760